=== PATIENT | male | born 1960 | race Caucasian/White ===

== ENCOUNTER 2025-03-04 21:36 | Emergency (ER) | payer MEDICARE, SELFPAY ==
[2025-03-04 21:39] VITALS: BP 156/86; PULSE 70; RESP 14; TEMP 36.7; O2SAT 99
[2025-03-04 21:45] VITALS: BP 156/86; PULSE 71; RESP 19; TEMP 36.6; O2SAT 99
--- NOTE | 2025-03-04 21:53 | ED.RECABL ---
HPI - Recheck/Abnormal Lab/Rx General Chief Complaint: Recheck/Abnormal Lab/Rx Stated Complaint: NEEDS Rx SIGNED FOR PAIN MEDS S/P LEAVING REHAB Time Seen by Provider: 03/04/25 21:45 Source: patient Mode of arrival: EMS Limitations: no limitations History of Present Illness HPI narrative: This is a 65-year-old male that presents to the emergency department for his pain medication. Reports he was discharged from our rehab facility today and his pain medication was not signed so he is not able to fill it. He has no other complaints. Related Data Home Medications ?Medication ?Instructions ?Recorded ?Confirmed ?Last Taken ?Type acetaminophen 325 mg tablet 650 mg PO Q6H PRN fever or pain 02/19/25 02/19/25 02/19/25 History apixaban 2.5 mg tablet (Eliquis) 2.5 mg PO BID 02/19/25 02/19/25 Unknown History aspirin 81 mg capsule 81 mg PO DAILY 02/19/25 02/19/25 Unknown History bacitracin 500 unit/gram topical 1 applic topical TID 02/19/25 02/19/25 02/18/25 History ointment calcium carbonate 500 mg PO Q2H PRN heartburn 02/19/25 02/21/25 02/18/25 History cholecalciferol (vitamin D3) 25 25 mcg PO DAILY 02/19/25 02/19/25 Unknown History mcg (1,000 unit) capsule (Vitamin D3) polyethylene glycol 3350 17 17 g PO DAILY 02/19/25 02/19/25 02/19/25 History gram/dose oral powder (Miralax) potassium chloride 20 mEq 20 meq PO BID 02/19/25 02/19/25 02/19/25 History tablet,extended release (K-Tab) riluzole 50 mg tablet 50 mg PO Q12H 02/19/25 02/19/25 02/18/25 History sennosides 8.6 mg tablet (Laxative 8.6 mg PO BID 02/19/25 02/19/25 02/19/25 History (sennosides)) Allergies Allergy/AdvReac Type Severity Reaction Status Date / Time No Known Allergies Allergy Unknown Verified 02/20/25 06:06 Review of Systems Review of Systems: All systems reviewed & are unremarkable except as noted in HPI and below PMFSH Past Medical History Medical History (Updated 03/04/25 @ 22:00 by Neli Demarco PA-C) Cervical spine fracture TBI (traumatic brain injury) Intracranial hemorrhage Fracture, olecranon Open fracture of right distal tibia Essential (primary) hypertension Social History Social History Smoking status: Smoker, status unknown Second hand tobacco smoke exposure: No Exam Narrative: GENERAL: In no acute distress. HEAD: Normocephalic, atraumatic. EYES: EOMI. NECK: Supple. No adenopathy or masses. C collar in place CHEST: No respiratory distress. HEART: Regular rate SKIN: Warm, dry, no rash. NEURO: No focal deficits. Alert and oriented x3. PSYCH: Normal mood and affect Course Vital Signs Vital signs: Vital Signs Temperature 98.1 F 03/04/25 21:39 Pulse Rate 70 03/04/25 21:39 Respiratory Rate 14 03/04/25 21:39 Blood Pressure 156/86 H 03/04/25 21:39 Pulse Oximetry 99 03/04/25 21:39 Temperature 97.9 F 03/04/25 21:45 Pulse Rate 71 03/04/25 21:45 Respiratory Rate 19 03/04/25 21:45 Blood Pressure 156/86 H 03/04/25 21:45 Pulse Oximetry 99 03/04/25 21:45 Oxygen Delivery Room Air 03/04/25 21:45 MDM - Recheck/Abnormal Lab/Rx MDM Narrative Medical decision making narrative: Patient presents to the emergency department for his pain medication. He was discharged from our rehab facility today and his pain medication was not signed so he is not able to fill it. He has no other complaints. I shredded his old prescription and sent a new one to the pharmacy Critical Care Time Critical Care Time Critical Care Time: No Discharge Plan Discharge Clinical Impression: Encounter for medication refill Patient Disposition: Home Condition: Stable Instructions: Medicine Refill (ED) Patient Language: [place] Prescriptions: New oxycodone 5 mg tablet 10 mg PO Q6H PRN (Reason: pain) Qty: 10 0RF No Action acetaminophen 325 mg tablet 650 mg PO Q6H PRN (Reason: fever or pain) Eliquis 2.5 mg tablet 2.5 mg PO BID aspirin 81 mg capsule 81 mg PO DAILY Rx Instructions: take one tablet by mouth once daily (chew and swallow). start 02/20/2025 bacitracin 500 unit/gram ointment 1 applic topical TID calcium carbonate 200 mg calcium (500 mg) tablet,chewable 500 mg PO Q2H PRN (Reason: heartburn) Rx Instructions: chew and swallow polyethylene glycol 3350 [Miralax] 17 gram/dose powder 17 g PO DAILY potassium chloride [K-Tab] 20 mEq tablet extended release 20 meq PO BID riluzole 50 mg tablet 50 mg PO Q12H Rx Instructions: administer on an empty stomach, at least 1 hour before or 2 hours after food/meal(s) sennosides [Laxative (sennosides)] 8.6 mg tablet 8.6 mg PO BID cholecalciferol (vitamin D3) [Vitamin D3] 25 mcg (1,000 unit) capsule 25 mcg PO DAILY methocarbamol 500 mg Tablet 500 mg PO Q8H Qty: 0 0RF atorvastatin 10 mg Tablet 10 mg PO DAILY Qty: 0 0RF amlodipine [Norvasc] 5 mg Tablet 5 mg PO DAILY Qty: 0 0RF baclofen 10 mg Tablet 10 mg PO TID Qty: 0 0RF hydrocortisone 1 % Cream 1 applic topical Q12HR Qty: 0 0RF buspirone 10 mg Tablet 15 mg PO DAILY Qty: 0 0RF gabapentin [Neurontin] 300 mg Capsule 300 mg PO TID Qty: 0 0RF oxycodone 5 mg Tablet 10 mg PO Q4H PRN (Reason: pain 5-10) Qty: 10 0RF Follow-up/Referrals: PHYSICIAN NOT ON STAFF,NONSTAFF [Primary Care Provider] -
[2025-03-04] MEDS: oxyCODONE HCL (*CRX) 5 MG TAB IR 10 MG PO (22:09)
[2025-03-04 23:07] VITALS: BP 129/69; PULSE 70; RESP 18; O2SAT 98
[2025-03-05 00:07] VITALS: BP 127/79; PULSE 71; RESP 15; O2SAT 95
== END 2025-03-05 00:08 ==
PROVIDERS: Emergency Provider Physician Assistant
DX: R52 Pain, unspecified (principal); Z76.0 Encounter for issue of repeat prescription; I10 Essential (primary) hypertension; Z87.820 Personal history of traumatic brain injury
CPT/HCPCS: 99281; A9270